=== PATIENT | female | born 1950 | race Hispanic/Latino ===

== ENCOUNTER 2017-07-20 09:44 | Outpatient (CLI) | payer MEDICARE | END 2017-07-20 09:45 | disposition home or self-care (01) | LOC: BICMAMMO 09:44 | PROVIDERS: ATTEND Internal Medicine Medical Oncology | DX: Z08 Encounter for follow-up examination after completed treatment for malignant neoplasm (principal); Z85.3 Personal history of malignant neoplasm of breast | CPT/HCPCS: 77066; G0279 ==

== ENCOUNTER 2023-11-06 19:51 | Inpatient (IN) | payer MEDICARE ==
[~2023-11-06 19:51] MED LIST: Iopamidol-370 76% 500 ML MDV (1 ML CHARGE) ONE
[2023-11-06] MEDS ORDERED: Ondansetron PF 4 MG/2 ML Vial ONE ×2 (20:02→20:45)
[2023-11-06] MEDS ORDERED: Morphine 4 MG/ML VIAL ONE (20:02)
[2023-11-06 20:25] LABS: #Basophils 0.03 10x3/uL (0.0-0.2); %Basophils 0.5 % (0.0-1.0); %Eosinophils 0.8 % (0.0-10.0); %Lymphocytes 34.8 % (21.0-51.0); %Monocytes 7.2 % (0.0-10.0); %Neutrophils 55.9 % (42.0-75.0); Hematocrit 42.6 % (36.0-47.0); Hemoglobin 14.2 g/dL (12.0-16.0); Mean Corpuscular HGB CONC 33.3 g/dL (32.0-36.0); Mean Corpuscular Hemoglobin 33.4 pg (27.0-31.0); Mean Corpuscular Volume 100.2 fL (78.0-98.0); Mean Platelet Volume 9.8 fL (7.4-10.4); Platelet Count 291 10x3/uL (130-400); RBC Distribution Width 14.2 % (11.5-14.5); Red Blood Cell (RBC) Count 4.25 mill/uL (4.20-5.40)
[2023-11-06 20:39] LABS: ALT (SGPT) 44 U/L (8-55); AST (SGOT) 46 U/L (5-34); Albumin 3.7 g/dL (3.4-4.8); Alkaline Phosphatase 108 U/L (40-110); Anion Gap 17 mmol/L (10-20); BUN (Urea Nitrogen) 9 mg/dL (9.8-20.1); Bilirubin, Total 0.3 mg/dL (0.2-1.2); Calc. Creatinine Clearance 0 mL/min (70-130); Calcium 9.3 mg/dL (7.8-10.44); Carbon Dioxide 21 mmol/L (23-31); Chloride 105 mmol/L (98-107); Estimated GFR 94; Globulin 3.4 g/dL (2.4-3.5); Glucose 124 mg/dL (83-110); Potassium 2.9 mmol/L (3.5-5.1); Protein, Total 7.1 g/dL (5.8-8.1); Sodium 140 mmol/L (136-145)
[2023-11-06] MEDS ORDERED: fentaNYL 50 mcg/mL 1 mL Vial ONE ×2 (20:44→22:45)
[2023-11-06 20:47] LABS: INR-International Normal Ratio 0.9; Prothrombin Time 11.8 sec (12.0-14.7)
[2023-11-06 20:50] LABS: PTT 21.2 sec (22.9-36.1)
[2023-11-06] MEDS ORDERED: Acetaminophen 325 MG TAB PO PRN (22:53)
[2023-11-07 04:21] VITALS: BMI 35.6
[2023-11-07] MEDS: Morphine 2 MG/ML VIAL SLOW IVP PRN (05:27)
[2023-11-07 05:44] LABS: #Basophils Less than 0.03 10x3/uL (0.0-0.2); #Eosinphils Less than 0.03 10x3/uL (0.0-0.7); %Basophils 0.2 % (0.0-1.0); %Monocytes 9.3 % (0.0-10.0); %Neutrophils 79.9 % (42.0-75.0); Hematocrit 38.1 % (36.0-47.0); Hemoglobin 12.7 g/dL (12.0-16.0); Mean Corpuscular HGB CONC 33.3 g/dL (32.0-36.0); Mean Corpuscular Hemoglobin 32.7 pg (27.0-31.0); Mean Corpuscular Volume 98.2 fL (78.0-98.0); Platelet Count 246 10x3/uL (130-400); Red Blood Cell (RBC) Count 3.88 mill/uL (4.20-5.40)
[2023-11-07 05:59] LABS: Anion Gap 18 mmol/L (10-20); BUN (Urea Nitrogen) 10 mg/dL (9.8-20.1); Calc. Creatinine Clearance 141 mL/min (70-130); Calcium 8.5 mg/dL (7.8-10.44); Carbon Dioxide 19 mmol/L (23-31); Chloride 109 mmol/L (98-107); Estimated GFR 97; Glucose 121 mg/dL (83-110); Potassium 3.7 mmol/L (3.5-5.1); Sodium 142 mmol/L (136-145)
[2023-11-07] MEDS ORDERED: Dextrose 5% in Water 1,000 ML IV PRN (14:00)
[2023-11-07] MEDS ORDERED: Dextrose 50% Abboject 50 ML SYRINGE SLOW IVP PRN (14:00)
[2023-11-07] MEDS ORDERED: Glucagon 1 MG/ML KIT IM PRN (14:00)
[2023-11-07] MEDS: traMADol HCl 50 MG TAB PO PRN (18:22)
[2023-11-07] MEDS ORDERED: hydrALAZINE 20 MG/ML VIAL SLOW IVP PRN (19:09)
[2023-11-07] MEDS: Acetaminophen/Codeine 30-300mg Tablet PO PRN (20:55)
[2023-11-07] MEDS: Donepezil HCl 10 MG TAB PO SCH (20:55)
[2023-11-07] MEDS: Lisinopril 20 MG TAB PO SCH (20:55)
[2023-11-07] MEDS: busPIRone HCl 10 MG TAB PO SCH (20:55)
[2023-11-07] MEDS: Ondansetron PF 4 MG/2 ML Vial IVP PRN (23:05)
[2023-11-07] MEDS: Insulin Regular, Human 100 UNIT/ML 10 ML VIAL SC PRN (23:05)
[2023-11-08 07:02] LABS: #Basophils Less than 0.03 10x3/uL (0.0-0.2); %Basophils 0.3 % (0.0-1.0); %Eosinophils 0.4 % (0.0-10.0); %Lymphocytes 15.3 % (21.0-51.0); %Monocytes 9.8 % (0.0-10.0); %Neutrophils 73.8 % (42.0-75.0); Hematocrit 39.7 % (36.0-47.0); Hemoglobin 12.9 g/dL (12.0-16.0); Mean Corpuscular HGB CONC 32.5 g/dL (32.0-36.0); Mean Corpuscular Hemoglobin 33.8 pg (27.0-31.0); Mean Corpuscular Volume 103.9 fL (78.0-98.0); Mean Platelet Volume 9.7 fL (7.4-10.4); Platelet Count 221 10x3/uL (130-400); RBC Distribution Width 13.9 % (11.5-14.5); Red Blood Cell (RBC) Count 3.82 mill/uL (4.20-5.40)
[2023-11-08 07:22] LABS: Anion Gap 17 mmol/L (10-20); BUN (Urea Nitrogen) 11 mg/dL (9.8-20.1); Calc. Creatinine Clearance 144 mL/min (70-130); Calcium 8.8 mg/dL (7.8-10.44); Carbon Dioxide 18 mmol/L (23-31); Chloride 107 mmol/L (98-107); Estimated GFR 98; Glucose 142 mg/dL (83-110); Potassium 4.1 mmol/L (3.5-5.1); Sodium 138 mmol/L (136-145)
[2023-11-08] MEDS: Clopidogrel Bisulfate 75 MG TAB PO SCH (08:35)
[2023-11-08] MEDS: Lisinopril 20 MG TAB PO SCH (08:35)
[2023-11-08] MEDS: Ibuprofen 600 MG TAB PO PRN (21:03)
[2023-11-08] MEDS ORDERED: Glucagon 1 MG/ML KIT IM PRN (21:11)
[2023-11-08] MEDS ORDERED: Dextrose 50% Abboject 50 ML SYRINGE SLOW IVP PRN (21:11)
[2023-11-08] MEDS ORDERED: Dextrose 5% in Water 1,000 ML IV PRN (21:11)
[2023-11-08] MEDS: HumaLOG 300 UNITS/3 ML VIAL SC PRN (21:28)
[2023-11-09] MEDS: Empagliflozin 10 MG TAB PO SCH (09:07)
[2023-11-10] MEDS: HumaLOG 300 UNITS/3 ML VIAL SC PRN (01:40)
[2023-11-10] MEDS: Senokot S 8.6-50 MG TAB PO SCH (08:14)
[2023-11-10] MEDS: Enoxaparin 40 MG (0.4 mL) SYRINGE SC SCH (08:14)
[2023-11-10] MEDS: Polyethylene Glycol 3350 17 GM Packet PO SCH (08:18)
[2023-11-12 12:00] VITALS: BP 115/75; TEMP 98
== END 2023-11-12 11:55 | DRG 552 ==
LOC: ERS 19:51 → SURG B 22:57
PROVIDERS: ADMIT Surgery; ATTEND Surgery
PROC: 2W39X3Z Immobilization of Left Upper Extremity using Brace (ICD-10-PCS; principal; 2023-11-12)
DX: S32.011A Stable burst fracture of first lumbar vertebra, initial encounter for closed fracture (principal); S42.343A Displaced spiral fracture of shaft of humerus, unspecified arm, initial encounter for closed fracture; S22.089A Unspecified fracture of T11-T12 vertebra, initial encounter for closed fracture; S02.2XXA Fracture of nasal bones, initial encounter for closed fracture; W18.30XA Fall on same level, unspecified, initial encounter
CPT/HCPCS: 29105; 36415; 36416; 70450; 70486; 71260; 72125; 74177; 80048; 80053; 85025; 85610; 85730; 93005; 96374; 96375; 96376; J1650; J1815; J2270; J2272; J2405; J3010; Q9967

== ENCOUNTER 2023-11-25 18:33 | Emergency (ER) | payer MEDICARE, OTHER ==
[2023-11-25] MEDS ORDERED: Ketorolac Tromethamine 30 MG (1 mL) VIAL ONE (19:10)
[2023-11-25 19:32] LABS: Actual Bicarbonate (HCO3v) 25.3 mEq/L (22-28); Base Excess 0.5 mEq/L (-2.0 to +3.0); Calcium, Ionized (venous) 1.14 mmol/L (1.16-1.32); Chloride (VBG) 101 mmol/L (98-106); Hematocrit-VBG 40 % (36.0-47.0); Hemoglobin (Hb) 13.6 g/dL (11.7-16.1); Potassium (VBG) 4.57 mmol/L (3.70-5.30); Sodium 137 mmol/L (133-146); pH (venous) 7.404 (7.32-7.43)
[2023-11-25 19:36] LABS: #Basophils 0.05 10x3/uL (0.0-0.2); %Basophils 0.5 % (0.0-1.0); %Eosinophils 0.4 % (0.0-10.0); %Lymphocytes 9.6 % (21.0-51.0); %Monocytes 7.8 % (0.0-10.0); Hematocrit 38.6 % (36.0-47.0); Hemoglobin 12.5 g/dL (12.0-16.0); Mean Corpuscular HGB CONC 32.4 g/dL (32.0-36.0); Mean Corpuscular Hemoglobin 31.9 pg (27.0-31.0); Mean Corpuscular Volume 98.5 fL (78.0-98.0); Mean Platelet Volume 9.8 fL (7.4-10.4); Platelet Count 578 10x3/uL (130-400); RBC Distribution Width 13.8 % (11.5-14.5); Red Blood Cell (RBC) Count 3.92 mill/uL (4.20-5.40)
[2023-11-25 19:56] LABS: ALT (SGPT) 30 U/L (8-55); AST (SGOT) 27 U/L (5-34); Albumin 3.4 g/dL (3.4-4.8); Alkaline Phosphatase 148 U/L (40-110); Anion Gap 20 mmol/L (10-20); BUN (Urea Nitrogen) 12 mg/dL (9.8-20.1); Bilirubin, Total 0.5 mg/dL (0.2-1.2); Calc. Creatinine Clearance 0 mL/min (70-130); Calcium 9.6 mg/dL (7.8-10.44); Carbon Dioxide 21 mmol/L (23-31); Chloride 104 mmol/L (98-107); Estimated GFR 80; Globulin 3.2 g/dL (2.4-3.5); Glucose 339 mg/dL (83-110); Lipase 39 U/L (8-78); Potassium 4.8 mmol/L (3.5-5.1); Protein, Total 6.6 g/dL (5.8-8.1); Sodium 140 mmol/L (136-145)
[2023-11-25] MEDS ORDERED: fentaNYL 50 mcg/mL 1 mL Vial ONE (19:56)
[2023-11-25 19:58] LABS: Troponin I Less than 0.010 ng/mL (< 0.028)
== END 2023-11-25 21:56 ==
LOC: ERS 18:33
DX: S42.212A Unspecified displaced fracture of surgical neck of left humerus, initial encounter for closed fracture (principal); S42.332A Displaced oblique fracture of shaft of humerus, left arm, initial encounter for closed fracture; E11.65 Type 2 diabetes mellitus with hyperglycemia; I10 Essential (primary) hypertension; D75.839 Thrombocytosis, unspecified; Z79.899 Other long term (current) drug therapy; Z79.82 Long term (current) use of aspirin; W01.0XXA Fall on same level from slipping, tripping and stumbling without subsequent striking against object, initial encounter
CPT/HCPCS: 73030; 73060; 80053; 82010; 82805; 82962; 83690; 84484; 85025; 93005; 96374; 96375; 99284; J1885; J3010; 36415; 36416